=== PATIENT | female | born 1995 | race African-American/Black ===

== ENCOUNTER 2016-10-06 09:15 | Emergency (ER) | payer OTHER ==
[~2016-10-06] VITALS: Ht 157.5 cm; Wt 56.2 kg
[2016-10-06 09:18] VITALS: BP 120/81
[2016-10-06] MEDS ORDERED: NAPROSYN500 MG PO (09:50)
[2016-10-06] MEDS ORDERED: NORFLEX100 MG PO (09:50)
== END 2016-10-06 09:55 | disposition home or self-care (01) ==
LOC: ER 09:15
DX: S39.012A Strain of muscle, fascia and tendon of lower back, initial encounter (principal); S16.1XXA Strain of muscle, fascia and tendon at neck level, initial encounter; V89.2XXA Person injured in unspecified motor-vehicle accident, traffic, initial encounter; Y93.I9 Activity, other involving external motion; Y92.89 Other specified places as the place of occurrence of the external cause; Y99.8 Other external cause status